=== PATIENT | male | born 1975 | race Caucasian/White ===

== ENCOUNTER 2017-03-22 13:33 | Emergency (ER) | payer OTHER ==
[~2017-03-22] VITALS: Ht 180.3 cm; Wt 75.0 kg
[2017-03-22 13:39] VITALS: BP 142/97; PULSE 69; RESP 16; TEMP 98; O2SAT 98
[2017-03-22] MEDS ORDERED: ACETAMINOPHEN/HYDROcodone 325 MG/5 MG TAB PO ONE (14:45)
--- NOTE | 2017-03-22 14:49 | PD ---
HPI Chief Complaint: Injury Time Seen by Provider: 14:42 Travel History International Travel<30 days: No Contact w/Intl Traveler<30days: No Traveled to known affect area: No History of Present Illness HPI 42-year-old male complains of right foot pain. Patient states that he struck his right foot against an object last night. Patient denies other injury. Patient states the pain is severe pain localized to right foot. Patient denies any pain radiation. Patient states that the pain is worse with weightbearing. Patient came to local urgent care this morning and had x-ray done of the right foot. Patient was referred to ED for further evaluation and treatment. [facility] Past Medical History Medical History: Denies Significant Hx Tetanus Vaccination: < 5 Years Influenza Vaccination: No Past Surgical History Surgical History: No Previous Surgery Social History Alcohol Use: Yes (Occ.) Tobacco Use: No Substance Use: Yes (Marijuana occ.) Allergies-Medications (Allergen,Severity, Reaction): Coded Allergies: No Known Allergies (Unverified , 03/22/17) Reported Meds & Prescriptions Reported Meds & Active Scripts Active No Active Prescriptions or Reported Medications Review of Systems General / Constitutional: No: Fever Eyes: No: Visual changes HENT: No: Headaches Cardiovascular: No: Chest Pain or Discomfort Respiratory: No: Shortness of Breath Gastrointestinal: No: Abdominal Pain Genitourinary: No: Dysuria Musculoskeletal: Positive: Pain Skin: No Rash Neurologic: No: Weakness Psychiatric: No: Depression Endocrine: No: Polydipsia Hematologic/Lymphatic: No: Easy Bruising Physical Exam Narrative GENERAL: Well-nourished, well-developed patient. SKIN: Focused skin assessment warm/dry. HEAD: Normocephalic. EYES: No scleral icterus. No injection or drainage. NECK: Supple, trachea midline. No JVD or lymphadenopathy. CARDIOVASCULAR: Regular rate and rhythm without murmurs, gallops, or rubs. RESPIRATORY: Breath sounds equal bilaterally. No accessory muscle use. GASTROINTESTINAL: Abdomen soft, non-tender, nondistended. MUSCULOSKELETAL: No cyanosis, or edema. BACK: Nontender without obvious deformity. No CVA tenderness. Patient has ecchymosis swelling tenderness distal aspect of the metatarsals and second and third toes. Data Data Last Documented VS Vital Signs Date Time Temp Pulse Resp B/P (MAP) Pulse Ox O2 Delivery O2 Flow Rate FiO2 03/22/17 13:39 98.0 69 16 142/97 (112) 98 Orders Orders Acetamin-Hydrocod 325-5 Mg ([place] 5-325 (03/22/17 14:45) MDM Medical Decision Making Medical Screen Exam Complete: Yes Emergency Medical Condition: Yes Interpretation(s) Review the x-ray CD that the patient brought over with him from urgent care center, patient had fractured the base of fourth and fifth toes. Differential Diagnosis Differential diagnosis: Contusion, fracture, dislocation. Narrative Course 42-year-old male complains of right foot injury. Juan M tape third fourth and fifth toes. Postop shoes. Crutches given. Diagnosis Primary Impression: Fracture of multiple toes Qualified Codes: S92.911A - Unspecified fracture of right toe(s), initial encounter for closed fracture Patient Instructions: General Instructions Additional Instructions: Take medication as directed for pain. Follow-up with auto wheel alignment specialist. Med/Other Pt SpecificInfo: Prescription(s) given Scripts Tramadol (Ultram) 50 Mg Tab 50 MG PO Q6H Y for PAIN, #20 TAB 0 Refills Prov: Horacio Ann MD 03/22/17 Ibuprofen (Ibuprofen) 600 Mg Tab 600 MG PO TID for Pain, #60 TAB 0 Refills Prov: Horacio Ann MD 03/22/17 Disposition: 01 DISCHARGE HOME Condition: Stable Horacio Ann MD Mar 22, 2017 14:49
[2017-03-22] MEDS ORDERED: IBUP-232 PO (15:07)
[2017-03-22] MEDS ORDERED: TRAM50 PO (15:07)
== END 2017-03-22 15:14 | disposition home or self-care (01) ==
LOC: PHED 13:33
DX: S92.911A Unspecified fracture of right toe(s), initial encounter for closed fracture (principal); W22.8XXA Striking against or struck by other objects, initial encounter
CPT/HCPCS: 99283; E0113; L3260